=== PATIENT | male | born 1965 | race Caucasian/White ===

== ENCOUNTER 2024-01-19 10:40 | Outpatient (CLI) | payer OTHER ==
[2024-01-19 11:22] LABS: HEMATOCRIT 51.9 % (39.0-48.0); HEMOGLOBIN 17.1 g/dL (13-16.00); MEAN CELL VOLUME 88.1 fL (80.0-100.00); MEAN CORPUSCULAR HEMOGLOBIN 29.1 pg (27.00-32.0); PLATELET COUNT 206 K/uL (150-450); RED BLOOD COUNT 5.89 M/uL (4.00-6.00); RED CELL DISTRIBUTION WIDTH 18.1 % (11.5-14.5)
[2024-01-19 11:58] LABS: INR 1.06; PARTIAL THROMBOPLASTIN TIME 28.9 SECONDS (22.0-34.0); PROTHROMBIN TIME 11.5 SECONDS (9.0-11.5)
[2024-01-19 12:27] LABS: ALBUMIN 3.8 gm/dL (3.4-5.0); BILIRUBIN TOTAL 1.13 mg/dL (0.3-1.2); CHOL HDL RATIO 5.4 (0-5.0); GFR 77.02; GLOBULINA 2.8 G/DL (2.4-3.5); POTASSIUM 4.44 mEq/L (3.5-5.1); PROSTATIC SPECIFIC ANTIGEN 1.18 NG/ML (0.010-4.00); T4 FREE 1.03 NG/ML (0.76-1.46); TOTAL PROTEIN 6.6 gm/dL (6.4-8.2); TSH 0.789 uIU/mL (0.358-3.74)
== END 2024-01-19 10:48 | disposition home or self-care (01) ==
LOC: LAB 10:40
DX: E78.2 Mixed hyperlipidemia (principal); E03.9 Hypothyroidism, unspecified